=== PATIENT | male | born 1955 ===

== ENCOUNTER 2017-02-26 07:05 | Day surgery (SDC) | payer SELFPAY ==
[2015-01-23 15:23] VITALS: BMI 29.5
[2017-02-26] MEDS ORDERED: Propofol 10 mg/ml Inj (20 ML) ONE ×2 (09:15)
[2017-02-26] MEDS ORDERED: Lactated Ringer's 1,000 ML IV ONE (09:15)
--- NOTE | 2017-02-26 09:17 | CP.SDSHP ---
Same Day Surgery H & P - History Proposed Procedure: egd. colonoscopy Pre-Op Diagnosis: heartburn. epigastric pain. rectal bleeding - Previous Medical/Surgical History Cardiac: Hypertension Endocrine/Metabolic: Diabetes Misc: Other (BPH, gastritis, gerd, bladder stones) Pain: 0. No Pain Previous Surgical History: cystoscopy 2015 - Allergies Allergies: Allergies No Known Allergies Allergy (Verified 02/26/17 07:37) - Physical Exam Vital Signs: Vital Signs 02/26/17 07:20 Temperature 97.3 F L Pulse Rate 63 Respiratory 19 Rate Blood Pressure 142/82 O2 Sat by Pulse 98 Oximetry Mental Status: Alert & Oriented x3 Neuro: WNL Heart: WNL Lungs: WNL GI: WNL - Impression Impression: epigastric pain. heartburn. rectal bleeding Pt. Evaluated Today:Candidate for Anesthesia & Procedure: Yes - Date & Time Date: 02/26/17 Time: 09:19 Short Stay Discharge - Short Stay Discharge Admitting Diagnosis/Reason for Visit: HEARTBURN,MELENA,EPIGASTRIC PAIN Disposition: HOME/ ROUTINE
[2017-02-26] MEDS ORDERED: Pantoprazole 40 mg EC Tab PO STA (09:28)
[2017-02-26] MEDS ORDERED: Pantoprazole 40 mg EC Tab PO ONE (10:45)
[2017-02-26 13:10] VITALS: TEMP 96.5
[2017-02-26 13:15] VITALS: BP 134/67; PULSE 47; RESP 14; O2SAT 95
== END 2017-02-26 11:00 | disposition home or self-care (01) ==
LOC: C.ENDO 07:05
PROVIDERS: ATTEND Internal Medicine Gastroenterology
DX: K21.9 Gastro-esophageal reflux disease without esophagitis (principal); K29.70 Gastritis, unspecified, without bleeding; K44.9 Diaphragmatic hernia without obstruction or gangrene; K64.8 Other hemorrhoids
CPT/HCPCS: 43239; 45378; 82948; 88305; 88312; 88342; J2001; J2704; J3010; J7120

== ENCOUNTER 2018-09-24 10:05 | Outpatient (CLI) | payer OTHER | END 2018-09-24 10:06 | disposition home or self-care (01) | LOC: C.LAB 10:05 ==

== ENCOUNTER 2018-11-03 10:43 | Outpatient (CLI) | payer OTHER | END 2018-11-03 10:44 | disposition home or self-care (01) | LOC: C.LAB 10:43 ==

== ENCOUNTER 2018-11-14 07:39 | Outpatient (CLI) | payer OTHER | END 2018-11-14 07:40 | disposition home or self-care (01) | LOC: C.CARD 07:39 ==